=== PATIENT | female | born 1945 | race Caucasian/White ===

== ENCOUNTER 2020-03-16 16:46 | Emergency (ER) | payer MEDICARE, OTHER, SELFPAY ==
[2020-03-16 16:46] VITALS: BP 123/77; PULSE 94; RESP 18; TEMP 36.2; O2SAT 94
[2020-03-16 16:47] VITALS: BP 123/77; PULSE 94; RESP 18; TEMP 36.2; O2SAT 94; BMI 29.2
--- NOTE | 2020-03-16 17:04 | ED.VIS.GEN ---
History of Present Illness Chief Complaint: Constipation Informant: Patient Narrative: 74-year-old female presenting with constipation and fecal impaction. 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 She is unable to do this at home. She is even tried mineral oil and laxatives. She does not have any abdominal pain, nausea. She states she does take a lot of fiber at home. She is not had a constipation issue in the past. Past Medical History - Allergies and Home Meds Allergies/Adverse Reactions: Allergies No Known Allergies Allergy (Verified 03/16/20 16:49) Primary Care Physician: Abhi Bowers MD [Primary Care Provider] - Past Medical History: - - Denies significant medical history Lives: Spouse/ Significant Other Smoking Status: Never smoker Alcohol: None Drugs: None Review of Systems General: Denies: Chills, Fever, Sweats Eyes: Denies: Visual changes - bilaterally, Diplopia ENT: Denies: Rhinorrhea, Sore throat Cardiovascular: Denies: Chest pain, Palpitations Respiratory: Denies: Dyspnea, Cough, Dyspnea on exertion Gastrointestinal: Reports: Constipation. Denies: Abdominal pain, Nausea, Vomiting, Diarrhea, Melena, Hematochezia Musculoskeletal: Denies: Back pain, Extremity Pain Skin: Denies: Rash, Wounds Physical Exam Vital Signs/Narrative: Vital Signs Temp Pulse Resp BP Pulse Ox 03/16/20 16:47 97.2 F L 94 18 123/77 H 94 03/16/20 16:46 97.2 F L 94 18 123/77 H 94 General: Well nourished, No Acute Distress Head: Normocephalic, Atraumatic Eyes: Perrl, EOMI ENT: Moist mucous membranes, No rhinorrhea Cardiovascular: Regular rate, Regular rhythm Respiratory: No distress, CTA bilaterally Abdomen: Soft, Nontender Rectal: - - Fecal impaction. Diagnostic/Tx/Re-eval - Medical Decision Making 74-year-old female presenting with constipation and fecal impaction which she noted today. She tried to disimpact herself without success. Patient was disimpacted at the bedside. Patient was able to have a large bowel movement after this and feels well. I do not believe she needs lab work or imaging. Patient will be discharged home in stable condition. Impression: 1. Fecal impaction ED Disposition - Plan for ED Patient: Disposition: Home or Assisted Living Instructions: ED Impaction Fecal Treated Referrals: Abhi Bowers MD [Primary Care Provider] -
== END 2020-03-16 17:31 | disposition home or self-care (01) ==
LOC: ED 17:24
PROVIDERS: Emergency Provider Student in an Organized Health Care Education/Training Program
DX: K56.41 Fecal impaction (principal)
CPT/HCPCS: 99282

== ENCOUNTER 2020-06-10 10:42 | Emergency (ER) | payer MEDICARE, OTHER, SELFPAY ==
[2020-06-10 10:43] VITALS: BP 120/85; PULSE 95; RESP 18; TEMP 35.7; O2SAT 97; BMI 27.6
--- NOTE | 2020-06-10 10:56 | ED.VIS.GEN ---
History of Present Illness Chief Complaint: Abd Pain Past Medical History - Allergies and Home Meds Allergies/Adverse Reactions: Allergies No Known Allergies Allergy (Verified 06/10/20 10:43) Primary Care Physician: Care Physician,No Primary [Primary Care Provider] - Smoking Status: Never smoker Physical Exam Vital Signs/Narrative: Vital Signs Temp Pulse Resp BP Pulse Ox 06/10/20 10:43 96.3 F L 95 18 120/85 H 97 ED Disposition - Plan for ED Patient: Referrals: Care Physician,No Primary [Primary Care Provider] -
--- NOTE | 2020-06-10 11:33 | CT_ITS ---
STUDY: CT ABDOMEN AND PELVIS WITH CONTRAST REASON FOR EXAM: Female, 74 years old. LOW ABD PAIN-WORSE ON RIGHT SIDE, NAUSEA, HYSTER RADIATION DOSAGE (If Supplied By Facility): CTDIvol = ( 13.77 ) mGy, DLP = ( 759.87 ) mGycm TECHNIQUE: Transaxial images were obtained from the dome of the diaphragm to the symphysis pubis with oral contrast. Oral and amp; IV Gastrografin and amp; 100mL Isovue-370 was administered. Sagittal and coronal images were reconstructed. Individualized dose optimization techniques were used for this CT. COMPARISON: None. FINDINGS: The visualized lung bases are unremarkable. The visualized portions of the heart are within normal limits. Small calcified granuloma along the lateral superior aspect of the right lobe of the liver. Normal gallbladder and extrahepatic biliary system. Normal spleen. Normal pancreas. Normal bilateral adrenal glands. Normal right kidney. Normal left kidney. There is a small hiatal hernia. Normal small intestine. There is thickening of the wall of the ascending colon as well as the transverse colon. This is suggestive of colitis. There is also evidence of sigmoid diverticulosis. The appendix is visualized and appears normal. There is diffuse atherosclerotic calcification of the abdominal aorta, without a demonstrated aneurysm. Normal inferior vena cava. Normal retroperitoneum. Normal urinary bladder. There is absence of the uterus consistent with a prior hysterectomy. There is a small umbilical hernia containing fat. There are diffuse degenerative changes of the visualized lumbar spine. CT/Abdomen/Pelvis WITH Contrast IMPRESSION: Thickening of the ascending colon and transverse colon suggestive of colitis. Sigmoid diverticulitis. Electronically Signed: Serafin Brice, at 13:43 EST , Service support ,
[2020-06-10] MEDS: 0.9% Normal Saline 1,000 ML 1000 ML IV (11:43)
[2020-06-10 11:47] LABS: Mucous, Urine 0 SEEN /hpf (<or=2+); Red Blood Cells-Urine 0 SEEN /hpf (0-5)
[2020-06-10 11:53] LABS: Absolute Lymphocyte Count 1.67 X10^3/uL (0.83-4.51); Absolute Neutrophil Count 3.6 X10^3/uL (2.0-7.7); Basophil# 0.02 X10^3/uL; Basophil% 0.3 % (0-1); Eosinophil# 0.03 X10^3/uL; Eosinophils% 0.5 % (0-5); Hematocrit 42.8 % (37-47); Hemoglobin 13.7 g/dL (12.0-15.0); Lymphocyte # 1.67 X10^3/ul (4.0); Lymphocyte % 28.7 % (19-41); Mean Corpuscular Hgb 29.4 pg (27.0-32.0); Mean Corpuscular Volume 91.8 fL (81-99); Mean Platelet Vol. 8.9 fl (6.2-12.0); Monocyte# 0.45 X10^3/uL; Monocyte% 7.7 % (0-10); NRBC Flagged by Analyzer 0 % (0-5); Neutrophil # 3.62 X10^3/uL (2.7-7.7); Neutrophil % 62.5 % (47-70); POSITIVE MORPHOLOGY YES; Platelet Count 247 K/mm3 (150-450); RBC Distribution Width CV 12.4 % (11.6-14.6); RBC Distribution Width SD 41.9 fl (35.1-43.9); Red Blood Count 4.66 M/mm3 (4.2-5.4); White Blood Count 5.8 K/mm3 (4.4-11.0)
[2020-06-10 11:56] LABS: Differential Indicated SCAN CRITERIA MET
[2020-06-10 11:57] LABS: Color, Urine Yellow (Yellow); Glucose, Dipstick Normal (Normal); Ketone-Dipstick Negative (Negative); Leukocyte Esterase-Dipstick 25 /ul (Negative); Nitrite-Dipstick Negative (Negative); Occult Blood-Urine Negative /ul (Negative); Protein-Dipstick Negative (Negative); Specific Gravity, Urine 1.015 (1.002-1.030); Urine Bilirubin Dipstick Negative (Negative); Urine Clarity Clear (Clear); Urine Urobilinogen Normal (Normal)
[2020-06-10 11:58] LABS: Bacteria RARE /hpf (None Seen); Squamous Epithelial Cells - UA 0-5 SEEN /hpf (5-10); White Blood Cells 0-5 SEEN /hpf (0-5)
[2020-06-10 12:15] LABS: ALB/GLOB Ratio 0.8 RATIO (0.9-2.4); AST(SGOT) 16 U/L (15-37); Alanine Aminotransfer ALT/SGPT 15 U/L (13-56); Albumin, Serum 3.3 g/dL (3.2-5.0); Alkaline Phosphatase 85 U/L (45-117); BUN 17 mg/dL (7-18); BUN/Creat Ratio 20.2 RATIO (10-20); Calcium,Total 8.9 mg/dL (8.5-10.1); Chloride 103 mmol/L (98-107); Creatinine, Serum 0.84 mg/dL (0.55-1.02); EST Glomerular Filtration Rate 70 mL/min (>60); Est Glom Filt Rate - Afr Amer 84 mL/min (>60); Globulin 4.3 g/dL (2.2-4.2); Glucose 94 mg/dL (74-106); Lipase 48 U/L (73-393); Potassium 3.8 mmol/L (3.5-5.1); Protein, Total 7.6 g/dL (6.4-8.2); Sodium Level 139 mmol/L (136-145)
[2020-06-10 12:16] LABS: Anion Gap 8 (5-15)
[2020-06-10 13:12] LABS: Atypical Lymphocyte RARE %
--- NOTE | 2020-06-10 14:02 | ED.VISSUMM ---
- ER Visit Summary Date of Service: 06/10/20 Chief Complaint: Abdominal pain History of Present Illness: The patient is a 74 F who presents with abdominal pain that has been getting worse over the past 4 days. Patient describes her pain is dull and aching. Patient states it is diffuse across her abdomen but worse on the right. Patient states it improved when she applied ice to it. Patient admits to nausea but denies any vomiting. Patient denies any diarrhea, melena, or hematochezia. Patient denies any dysuria or hematuria. Patient admits to subjective chills but denies any fevers. Patient also admits to body aches. Physical Examination: Vital signs are stable. Patient is afebrile. Patient is in no acute distress. Oral mucosa is pink and moist. Neck is supple. Trachea is midline. There is no JVD. Heart was regular rate and rhythm. Lungs are clear and equal bilaterally. Abdomen is soft. Bowel sounds are normal. There is diffuse tenderness but it is worse in the right lower quadrant. There is no rebound or guarding noted. There is no Rovsing sign noted. Extremities are intact. There is no calf tenderness or edema. Cranial nerves II through XII are intact. There are no focal motor or sensory deficits. Test Results: CBC and comprehensive metabolic profile were within normal limits. Lipase was normal. Urinalysis does not show any evidence of urinary tract infection. CT scan of the abdomen pelvis was obtained. There is colitis involving the ascending and transverse colon. This was interpreted by the radiologist and reviewed by myself. Emergency Department Course and Treatment: Patient was given IV fluids. Patient was ordered morphine and Zofran but she refused these. Patient was given a dose of Augmentin here. Patient was given a prescription for Augmentin. Patient was instructed to follow-up with her primary care physician in 5 to 7 days. Patient understood and was agreeable with the plan. All questions were answered. Disposition: Discharge home Impression: 1. Colitis This note was generated with [employer] dictation software. It may contain incorrect words, spelling, and punctuation that were not noted in review of the chart prior to signing ED Disposition - Plan for ED Patient: Disposition: Home or Assisted Living Diagnosis: Colitis Instructions: ED Gastroenteritis, Bacterial (Adult) Prescriptions: Amox/Clavulanate Tablet [Augmentin Tablet] 875 mg PO Q12H #20 tab Prescription Printed Referrals: Verónica Cardona MD [STAFF PHYSICIAN] - 5-7 Days
[2020-06-10] MEDS: Amox/Clavulanate 875 MG Tablet PO (14:22)
[2020-06-10 14:23] VITALS: PULSE 75; RESP 16; O2SAT 98
== END 2020-06-10 14:23 | disposition home or self-care (01) ==
PROVIDERS: Emergency Provider Emergency Medicine
DX: K52.9 Noninfective gastroenteritis and colitis, unspecified (principal)
CPT/HCPCS: 74177; 80053; 81001; 83690; 85025; 96361; 96374; 96375; 99284; J7030; Q9967; A4216; J2405